=== PATIENT | female | born 1960 | race Hispanic/Latino ===

== ENCOUNTER 2020-06-12 16:05 | Emergency (ER) | payer OTHER | END 2020-06-12 16:53 | disposition home or self-care (01) | LOC: EDH 16:05 | DX: T16.1XXA Foreign body in right ear, initial encounter (principal); E11.9 Type 2 diabetes mellitus without complications; I10 Essential (primary) hypertension; Z88.1 Allergy status to other antibiotic agents; X58.XXXA Exposure to other specified factors, initial encounter; Y93.89 Activity, other specified; Y92.89 Other specified places as the place of occurrence of the external cause; Y99.8 Other external cause status | CPT/HCPCS: 69200 ==

== ENCOUNTER 2022-12-15 07:45 | Emergency (ER) | payer OTHER ==
[~2022-12-15] VITALS: Ht 172.7 cm; Wt 102.5 kg
[2022-12-15 08:23] LABS: BASOPHILS % (AUTO) 1.1 % (0.0-5.0); EOSINOPHILS % (AUTO) 4.7 % (0.0-8.0); HEMATOCRIT 41.3 % (36-48); MEAN CORPUSCULAR HEMOGLOBIN 27.1 pg (27.0-33.0); MEAN CORPUSCULAR HGB CONC 32.4 g/dL (32.0-36.0); MEAN CORPUSCULAR VOLUME 83.4 fL (79-99); MONOCYTES % (AUTO) 6.1 % (3.0-13.0); NEUTROPHILS % (AUTO) 55.7 % (40.0-77.0); PLATELET COUNT (AUTO) 250 K/uL (130-400); RED BLOOD CELL COUNT(AUTO) 4.95 MIL/uL (4.00-5.50); RED CELL DISTRIBUTION WIDTH 14.8 % (11.0-15.5); WHITE BLOOD COUNT (AUTO) 7.4 K/uL (4.8-10.8)
[2022-12-15 08:37] LABS: ALBUMIN 3.2 g/dL (3.5-5.0); CREATININE 1.7 mg/dL (0.5-1.5); POTASSIUM 3.9 mmol/L (3.5-5.1); TOTAL PROTEIN, SERUM 7.7 g/dL (6.0-8.3)
[2022-12-15 09:32] VITALS: BP 110/59
[2022-12-15] MEDS ORDERED: GABA-529 PO (09:57)
[2022-12-15 10:40] LABS: APPEARANCE,URINE CLEAR (CLEAR); BILIRUBIN,URINE NEGATIVE (NEGATIVE); COLOR,URINE LIGHT-YELLOW (YELLOW); GLUCOSE, URINE (UA) >=1000 mg/dL (NEGATIVE); KETONES,URINE NEGATIVE (NEGATIVE); LEUKOCYTE ESTERASE ,URINE NEGATIVE Leu/uL (NEGATIVE); NITRATE,URINE NEGATIVE (NEGATIVE); OCCULT BLOOD,URINE NEGATIVE (NEGATIVE); PROTEIN,URINE NEGATIVE (NEGATIVE); UROBILINOGEN,URINE 0.2 mg/dL (0.2-1.0)
[2022-12-15 10:49] LABS: BACTERIA,URINE RARE /HPF (None Seen); MUCUS,URINE RARE LPF (None Seen); RBC,URINE 0-1 /HPF (0-1); SQUAMOUS EPITHELIAL CELL,UR RARE /HPF (0-2); WBC,URINE 0-1 /HPF (0-1)
== END 2022-12-15 11:04 | disposition home or self-care (01) ==
LOC: EDH 07:45
DX: M94.0 Chondrocostal junction syndrome [Tietze] (principal); B02.29 Other postherpetic nervous system involvement; I10 Essential (primary) hypertension; E78.00 Pure hypercholesterolemia, unspecified; E11.9 Type 2 diabetes mellitus without complications; M79.7 Fibromyalgia; G20 Parkinson's disease; Z90.710 Acquired absence of both cervix and uterus; Z90.49 Acquired absence of other specified parts of digestive tract
CPT/HCPCS: 36415; 71100; 80053; 81001; 83690; 84484; 85025; 93005

== ENCOUNTER 2023-08-07 13:46 | Emergency (ER) | payer OTHER ==
[~2023-08-07] VITALS: Ht 172.7 cm; Wt 102.1 kg
[~2023-08-07 13:46] MED LIST: GABA-529 PO
[2023-08-07] MEDS ORDERED: HYDROXYZINE 25 MG TABLET PO ONE (14:00)
[2023-08-07 14:10] LABS: BASOPHILS # (AUTO) 0.05 K/uL (0.00-0.20); BASOPHILS % (AUTO) 0.4 % (0.0-5.0); EOSINOPHILS # (AUTO) 0.16 K/uL (0.00-0.70); EOSINOPHILS % (AUTO) 1.2 % (0.0-8.0); HEMATOCRIT 39.1 % (36-48); IMMATURE GRANULOCYTE ABSOLUTE 0.09 K/uL (0-1); LYMPHOCYTES # (AUTO) 2.9 K/uL (1.0-4.8); LYMPHOCYTES % (AUTO) 22.9 % (21.0-51.0); MEAN CORPUSCULAR HEMOGLOBIN 27.1 pg (27.0-33.0); MEAN CORPUSCULAR HGB CONC 32.5 g/dL (32.0-36.0); MEAN CORPUSCULAR VOLUME 83.4 fL (79-99); MONOCYTES # (AUTO) 0.8 K/uL (0.1-1.0); MONOCYTES % (AUTO) 5.9 % (3.0-13.0); NEUTROPHILS # (AUTO) 8.8 K/uL (1.8-7.7); NEUTROPHILS % (AUTO) 68.9 % (40.0-77.0); PLATELET COUNT (AUTO) 346 K/uL (130-400); RED BLOOD CELL COUNT(AUTO) 4.69 MIL/uL (4.00-5.50); RED CELL DISTRIBUTION WIDTH 13.8 % (11.0-15.5); WHITE BLOOD COUNT (AUTO) 12.8 K/uL (4.8-10.8)
[2023-08-07 14:24] LABS: SARS-CoV-2, RNA, NAAT NEGATIVE SARS CoV-2 (NEGATIVE)
[2023-08-07 14:24] LABS: CREATININE 1.4 mg/dL (0.5-1.5)
[2023-08-07 14:27] LABS: INR <= 0.93 (0.85-1.15); PROTHROMBIN TIME 10.3 SEC (9.6-11.6)
[2023-08-07 14:28] LABS: ALBUMIN 2.9 g/dL (3.5-5.0); BILIRUBIN,TOTAL 0.6 mg/dL (0.2-1.0); PARTIAL THROMBOPLASTIN TIME 26.4 SEC (26.3-35.5)
[2023-08-07 14:29] LABS: INFLUENZA TYPE A Negative For Type A (NEGATIVE); INFLUENZA TYPE B Negative For Type B (NEGATIVE)
[2023-08-07] MEDS ORDERED: [UNRECOGNIZED DRUG - OTHER] IV ONE (14:30)
[2023-08-07 14:39] LABS: B-TYPE NATRIURETIC PEPTIDE 164 pg/mL (0-100)
[2023-08-07] MEDS ORDERED: IOHEXOL-350 75 ML VIAL IV ONE (15:01)
[2023-08-07] MEDS ORDERED: ALBUHFA IH (16:09)
[2023-08-07] MEDS ORDERED: HYDR50CA50 PO (16:09)
[2023-08-07] MEDS ORDERED: AUD IH (16:09)
[2023-08-07 16:21] VITALS: BP 154/63; PULSE 81; RESP 18; O2SAT 98
== END 2023-08-07 16:32 | disposition home or self-care (01) ==
LOC: EDH 13:46
DX: J45.20 Mild intermittent asthma, uncomplicated (principal); F41.9 Anxiety disorder, unspecified; E86.0 Dehydration; E11.9 Type 2 diabetes mellitus without complications; I10 Essential (primary) hypertension; M79.7 Fibromyalgia; Z79.899 Other long term (current) drug therapy; Z90.49 Acquired absence of other specified parts of digestive tract; Z20.822 Contact with and (suspected) exposure to COVID-19
CPT/HCPCS: 99285; 71270; 71045; 87635; 82550; 84484; 80053; 83880; 85025; 85610; 85730; 87804 ×2; 36415; 93005; J7030; Q9967

== ENCOUNTER → 2023-08-29 | Emergency (ER) | payer OTHER ==
[~2023-08-29] VITALS: Ht 172.7 cm; Wt 103.4 kg
[~2023-08-29] MED LIST changes: +ALBUHFA IH; +AUD IH; +HYDR50CA50 PO
[2023-08-29 20:52] VITALS: RESP 20
== END ==
LOC: EDH 19:06
DX: R10.9 Unspecified abdominal pain (principal); Z53.21 Procedure and treatment not carried out due to patient leaving prior to being seen by health care provider
CPT/HCPCS: 99281